=== PATIENT | female | born 1970 | race American Indian/Alaskan Native ===

== ENCOUNTER 2017-12-19 15:10 | Outpatient (CLI) | payer OTHER ==
--- NOTE | 2017-12-19 16:10 | Mammography Report ---
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 Status post 2 MRI guided biopsies of the left breast with benign pathology. Bilateral brownish nipple discharge. COMPARISON:02/17/16 and 01/26/16 FINDINGS: The breasts are heterogeneously dense, which may obscure small masses.2 biopsy clips in the right breast and three biopsy clips in the left breast. No mass, architectural distortion or suspicious calcifications. IMPRESSION: No mammographic evidence of malignancy. BI-RADS CATEGORY: 2 -- Benign RECOMMENDATION: Routine mammographic screening in one year. COMMENT: Patient follow-up letters are generated by our [employer] application.
== END 2017-12-19 15:11 | disposition home or self-care (01) ==
LOC: SPVWC 15:10
PROVIDERS: ATTEND Surgery
DX: Z12.31 Encounter for screening mammogram for malignant neoplasm of breast (principal)
CPT/HCPCS: 77067

== ENCOUNTER 2018-01-09 08:16 | Outpatient (CLI) | payer OTHER ==
--- NOTE | 2018-01-09 15:00 | Magnetic Resonance Report ---
BILATERAL BREAST MRI WITHOUT AND WITH CONTRAST: 01/09/18 08:16:00 CLINICAL: History of bilateral nipple discharge and status post bilateral MRI guided needle biopsies at 2 sites in each breast. Right pathologic diagnosis of intraductal papilloma at both sites and left pathologic diagnosis of benign breast tissue and both sites. Right biopsies were performed 01/26/16 and left biopsies were performed 02/17/16. COMPARISON:01/15/16. TECHNIQUE: Axial 1.0-mm T1 without, axial high resolution 2.0-mm T2 and axial 1.0-mm dynamic Vibrant high-resolution postcontrast T1 fat saturation sequences on a 1.5 Vanessa magnet. The examination was performed with an 8 channel dedicated [employer] breast coil. Post processing with CAD and subtraction was performed on an [employer] workstation. 16.0 cc of Multihance was injected without incident for the contrast portion of the exam. Consent was obtained prior to the administration of the contrast. FINDINGS: Right: Mild background parenchymal enhancement. Lesion 1 is a serpiginous non-Mass enhancement in the lower outer quadrant 7.3 cm from the nipple measuring 8.4 x 4.4 x 3.5 mm. It demonstrates heterogeneous enhancement with mixed kinetics and 22% type III washout. There is adjacent biopsy clip and it correlates with a previously biopsied benign papilloma. No mass and no other suspicious enhancement of the right breast. No suspicious lymph nodes. Left: Mild background parenchymal enhancement. Lesion 2 is a serpiginous contrast-enhancement in the lower outer quadrant 3.7 cm from the nipple. It has an adjacent biopsy clip and measures 9.3 x 4.2 x 3.9 mm. This lesion correlates with a previously identified lesion and a smaller than on the prior exam. It demonstrates heterogeneous enhancement with mixed kinetics and 3% type III washout. Lesion 3 is irregular non-Mass enhancement in the upper outer quadrant 5.7 cm from the nipple. It measures 6.8 x 2.0 x 4.9 mm and correlates with a previously biopsied lesion. There are 2 adjacent biopsy clips. It demonstrates heterogeneous enhancement with mixed kinetics and 3% type III washout. No mass and no other suspicious enhancement. No suspicious lymph nodes. IMPRESSION: Bilateral lesions of non-Mass enhancement which correlate with previously identified and previously biopsied lesions. No new lesions. BI-RADS 2 - - Benign
== END 2018-01-09 08:17 | disposition home or self-care (01) ==
LOC: SPVIMAG 08:16
PROVIDERS: ATTEND Surgery
DX: N64.89 Other specified disorders of breast (principal)
CPT/HCPCS: A9577; C8908; 77059

== ENCOUNTER 2018-08-07 13:13 | Outpatient (CLI) | payer OTHER ==
--- NOTE | 2018-08-07 14:02 | Mammography Report ---
BILATERAL DIGITAL DIAGNOSTIC MAMMOGRAM with CAD: 08/07/18 13:13:00 CLINICAL: Status post bilateral benign surgical excisions 04/02/18. Positive gene mutation and history of papillomas. Family history breast cancer. COMPARISON:12/19/17 FINDINGS: The breasts are heterogeneously dense, which may obscure small masses. Minimal right postsurgical scar. Stable left postsurgical scar with a biopsy clip at 12 o'clock. No mass, suspicious architectural distortion or suspicious calcifications. IMPRESSION: No mammographic evidence of malignancy. BI-RADS CATEGORY: 2 - - Benign RECOMMENDATION: Routine mammographic screening in one year. COMMENT: 1. Dense breast tissue, i.e., adenosis, fibrocystic changes, etc., may obscure an underlying neoplasm. 2. Approximately 10% of cancers are not detected with mammography. 3. A negative mammography report should not delay biopsy if a clinically suspicious mass is present. COMMENT: Patient follow-up letters are generated by our [employer] application.
== END 2018-08-07 13:14 | disposition home or self-care (01) ==
LOC: SPVWC 13:13
PROVIDERS: ATTEND Surgery
DX: R92.8 Other abnormal and inconclusive findings on diagnostic imaging of breast (principal); I10 Essential (primary) hypertension; Z90.710 Acquired absence of both cervix and uterus; Z80.3 Family history of malignant neoplasm of breast
CPT/HCPCS: 77066

== ENCOUNTER 2018-12-25 08:18 | Outpatient (CLI) | payer OTHER ==
--- NOTE | 2018-12-25 09:12 | Mammography Report ---
DIGITAL SCREENING MAMMOGRAM WITH CAD, 12/25/2018 INDICATION: Routine screening mammography. History of bilateral benign papillomas and biopsies. TECHNIQUE: Digital bilateral 2D mammography was obtained in the craniocaudal and mediolateral obliq ue projections. This examination was interpreted with the benefit of Computer-Aided Detection analysi s. COMPARISON: 12/19/2017 FINDINGS: Breast Density: The breasts are heterogeneously dense, which may obscure small masses. There is no evidence of dominant mass, suspicious calcifications or architectural distortion in eithe r breast. Previously identified right surgical clips have been surgically excised. A left inner biops y clip with a stable adjacent benign postsurgical scar. IMPRESSION: No mammographic evidence of malignancy. Follow up recommendation: Routine yearly BI-RADS Category 2: Benign. A "normal" or negative report should not discourage follow up or biopsy of a clinically significant f inding. A written summary of these findings will be mailed to the patient. The patient will be entered into a mammography reporting system which will generate a reminder letter for the patient's next appointmen t at the appropriate interval. The [employer] recommends yearly mammograms starting at age 40 and continuing as l zuri as a woman is in good health. Breast MRI is recommended for women with an approximate 20-25% or greater lifetime risk of breast cancer, including women with a strong family history of breast or ova amy cancer or who have been treated for Hodgkin's disease. Signer Name: Nicholas Haddad MD Signed: 12/25/2018 9:07 AM Workstation Name: [id number]
== END 2018-12-25 08:19 | disposition home or self-care (01) ==
LOC: SPVWC 08:18
PROVIDERS: ATTEND Surgery
DX: Z12.31 Encounter for screening mammogram for malignant neoplasm of breast (principal)
CPT/HCPCS: 77067

== ENCOUNTER 2019-01-16 08:08 | Outpatient (CLI) | payer OTHER ==
--- NOTE | 2019-01-21 10:38 | Magnetic Resonance Report ---
BILATERAL BREAST MR WITHOUT AND WITH GADOLINIUM INDICATION: History of papillomas and status post surgical excision of 2 left benign papillomas 04/02. COMPARISONS: 01/09/2018 and 01/15/2016 TECHNIQUE: Axial 1.0 mm T1 without, axial high-resolution 2.0 mm T2 and axial 1.0 mm dynamic vibrant high-resolution postcontrast T1 fat saturation sequences on a 1.5 Vanessa magnet. The examination was p erformed with an 8-channel dedicated [employer] breast coil. Post-processing with CAD and subtraction was performed on an [employer] workstation. 14.0 cc of MultiHance was injected without incident for the c ontrast portion of the exam. Consent was obtained prior to the administration of the contrast. FINDINGS: RIGHT BREAST: Mild background parenchymal enhancement. No mass or suspicious enhancement. No suspicio us right axillary or right internal mammary lymph nodes. LEFT BREAST: Mild background parenchymal enhancement. Focal nonmass enhancement at 12:00 4.4 cm from the nipple measures 9.2 x 5.5 x 4.5 mm. It demonstrates heterogeneous enhancement with mixed kinetics , 156% peak enhancement, 46% type I persistent, 46% type II plateau and 8% type III washout. This les ion corresponds to lesion for on the last MRI and it measured 6.1 x 3.3 x 2.2 mm on that exam. It als o represents the most posterior aspect lesion 4 on the 01/15/2016 MRI. No mass and no other suspiciou s enhancement. No suspicious left axillary or left internal mammary lymph nodes. IMPRESSION: 1. A probably benign 9.2 mm focus of nonmass enhancement in the left breast at 12:00 4 cm from the ni pple. It appears that most of this lesion has been surgically excised. 2. Negative right breast. 3. No suspicious lymph nodes. 4. Recommend routine screening mammography and repeat MRI in one year. BI-RADS Category 3: Probably Benign Signer Name: Nicholas Haddad MD Signed: 01/21/2019 10:34 AM Workstation Name: [id number]
== END 2019-01-16 08:09 | disposition home or self-care (01) ==
LOC: SPVIMAG 08:08
PROVIDERS: ATTEND Surgery
DX: N60.82 Other benign mammary dysplasias of left breast (principal); N60.81 Other benign mammary dysplasias of right breast; Z80.3 Family history of malignant neoplasm of breast
CPT/HCPCS: A9577; C8908; 77049